=== PATIENT | female | born 1980 | race Hispanic/Latino ===

== ENCOUNTER 2018-08-15 19:45 | Emergency (ER) | payer OTHER, SELFPAY ==
[2018-08-15] MEDS: NORCO, ANEXSIA 5/325MG TABLET (HYDROcodone/ACETAMINOPHEN) PO (20:20)
== END 2018-08-15 20:48 | disposition home or self-care (01) ==
LOC: M ED 19:45
DX: S96.212A Strain of intrinsic muscle and tendon at ankle and foot level, left foot, initial encounter (principal); W10.8XXA Fall (on) (from) other stairs and steps, initial encounter; Y92.098 Other place in other non-institutional residence as the place of occurrence of the external cause; K21.9 Gastro-esophageal reflux disease without esophagitis; K58.9 Irritable bowel syndrome, unspecified; F31.9 Bipolar disorder, unspecified; Z87.42 Personal history of other diseases of the female genital tract; Z79.899 Other long term (current) drug therapy
CPT/HCPCS: 73610

== ENCOUNTER 2018-09-16 05:59 | Emergency (ER) | payer OTHER ==
[2018-09-16] MEDS: ACETAMINOPH W/CODEINE #3 TAB UD PO (06:30)
== END 2018-09-16 07:48 | disposition home or self-care (01) ==
LOC: M ED 05:59
DX: S70.02XA Contusion of left hip, initial encounter (principal); S20.212A Contusion of left front wall of thorax, initial encounter; W10.8XXA Fall (on) (from) other stairs and steps, initial encounter; Y92.018 Other place in single-family (private) house as the place of occurrence of the external cause; M79.642 Pain in left hand; K21.9 Gastro-esophageal reflux disease without esophagitis; K58.9 Irritable bowel syndrome, unspecified; F31.9 Bipolar disorder, unspecified; F60.3 Borderline personality disorder; Z79.899 Other long term (current) drug therapy
CPT/HCPCS: 71101

== ENCOUNTER → 2018-09-27 | Outpatient (CLI) | payer OTHER ==
[2018-09-27 16:52] LABS: BASO # 0.1 10^3/uL (0.0-0.2); EOS # 0.2 10^3/uL (0.0-0.50); EOS % 3.7 % (0.0-3.0); HEMATOCRIT 42.4 % (36.0-47.0); HEMOGLOBIN 13.1 g/dl (12.0-15.5); IMMATURE GRANULOCYTE # 0.1 10^3/uL (0-0); IMMATURE GRANULOCYTE % 1.1 % (0-3.0); LYMPH # 2.6 10^3/uL (1.5-4.5); LYMPH % 42.2 % (24.0-44.0); MEAN CORPUSCULAR HEMOGLOBIN 30.1 pg (27.0-33.0); MEAN CORPUSCULAR HGB CONC 30.9 g/dl (32.0-36.5); MEAN CORPUSCULAR VOLUME 97.5 fl (80.0-96.0); MONO # 0.2 10^3/uL (0.0-0.8); MONO % 3.7 % (0.0-5.0); NEUTROPHILS % 48.3 % (36.0-66.0); PLATELET COUNT, AUTOMATED 272 10^3/uL (150-450); RED BLOOD COUNT 4.35 10^6/uL (4.00-5.40); WHITE BLOOD COUNT 6.2 10^3/uL (4.0-10.0)
[2018-09-27 17:52] LABS: ALBUMIN 4.1 GM/DL (3.2-5.2); ALBUMIN/GLOBULIN RATIO 1.52 (1.00-1.93); ALKALINE PHOSPHATASE 84 U/L (45-117); ALT/SGPT 31 U/L (12-78); ANION GAP 9 MEQ/L (8-16); AST/SGOT 19 U/L (7-37); BILIRUBIN,TOTAL 0.3 MG/DL (0.2-1.0); BLOOD UREA NITROGEN 10 MG/DL (7-18); CALCIUM LEVEL 9.2 MG/DL (8.5-10.1); CARBON DIOXIDE LEVEL 25 MEQ/L (21-32); CHLORIDE LEVEL 107 MEQ/L (98-107); CHOLESTEROL LEVEL 255 MG/DL (<200); CREATININE FOR GFR 0.85 MG/DL (0.55-1.30); GLOMERULAR FILTRATION RATE > 60.0 (>60); GLUCOSE, FASTING 111 MG/DL (70-100); HDL CHOLESTEROL 51 MG/DL (>40); LDL CHOLESTEROL 174 MG/DL (<100); LITHIUM LEVEL 0.97 MEQ/L (0.60-1.20); NON-HDL-C 204 MG/DL; SODIUM LEVEL 141 MEQ/L (136-145); TOTAL PROTEIN 6.8 GM/DL (6.4-8.2); TRIGLYCERIDES LEVEL 148 MG/DL (<150)
[2018-09-27 18:06] LABS: ESTIMATED AVERAGE GLUCOSE 100 MG/DL (60-110); HEMOGLOBIN A1c 5.1 %
== END ==
LOC: M WUC 11:17
DX: F41.9 Anxiety disorder, unspecified (principal)
CPT/HCPCS: 80178

== ENCOUNTER 2018-10-07 07:51 | Emergency (ER) | payer OTHER ==
[2018-10-07 08:43] LABS: BASO # 0.1 10^3/uL (0.0-0.2); BASO % 0.7 % (0.0-1.0); EOS # 0.2 10^3/uL (0.0-0.50); EOS % 3.3 % (0.0-3.0); HEMATOCRIT 37.8 % (36.0-47.0); HEMOGLOBIN 12.1 g/dl (12.0-15.5); IMMATURE GRANULOCYTE % 1.3 % (0-3.0); LYMPH # 2.5 10^3/uL (1.5-4.5); LYMPH % 36.4 % (24.0-44.0); MEAN CORPUSCULAR HEMOGLOBIN 30.7 pg (27.0-33.0); MEAN CORPUSCULAR VOLUME 95.9 fl (80.0-96.0); MONO # 0.3 10^3/uL (0.0-0.8); NEUTROPHILS # 3.6 10^3/uL (1.8-7.7); NEUTROPHILS % 53.3 % (36.0-66.0); PLATELET COUNT, AUTOMATED 206 10^3/uL (150-450); RED BLOOD COUNT 3.94 10^6/uL (4.00-5.40); RED CELL DISTRIBUTION WIDTH 13.2 % (11.5-14.5); WHITE BLOOD COUNT 6.7 10^3/uL (4.0-10.0)
[2018-10-07] MEDS: ASPIRIN 81 MG CHEW TABLET PO (08:44)
[2018-10-07] MEDS: SUCRALFATE 1 GM TAB PO (08:44)
[2018-10-07] MEDS: ONDANSETRON 4MG/2ML VIAL (J2405) IV (08:44)
[2018-10-07] MEDS: PANTOPRAZOLE 40MG INJ (PROTONIX) (C9113) IV (08:44)
[2018-10-07] MEDS: NITROGLYCERIN 0.4 MG SUBL TABLET SL (08:58)
[2018-10-07 09:00] LABS: ALBUMIN 3.5 GM/DL (3.2-5.2); ALBUMIN/GLOBULIN RATIO 1.17 (1.00-1.93); ALKALINE PHOSPHATASE 71 U/L (45-117); ALT/SGPT 26 U/L (12-78); ANION GAP 7 MEQ/L (8-16); AST/SGOT 18 U/L (7-37); BILIRUBIN,DIRECT < 0.1 MG/DL (0.0-0.2); BILIRUBIN,TOTAL 0.2 MG/DL (0.2-1.0); BLOOD UREA NITROGEN 11 MG/DL (7-18); CALCIUM LEVEL 9.2 MG/DL (8.5-10.1); CARBON DIOXIDE LEVEL 25 MEQ/L (21-32); CHLORIDE LEVEL 107 MEQ/L (98-107); CK-MB VALUE MASS < 1.0 NG/ML (<3.6); CPK CREATINE PHOSPHOKINASE 55 U/L (26-192); GLOMERULAR FILTRATION RATE > 60.0 (>60); GLUCOSE, FASTING 112 MG/DL (70-100); LIPASE 97 U/L (73-393); MB/CK RELATIVE INDEX 1.82 (< OR =4); POTASSIUM SERUM 3.7 MEQ/L (3.5-5.1); SODIUM LEVEL 139 MEQ/L (136-145); TOTAL PROTEIN 6.5 GM/DL (6.4-8.2); TROPONIN I < 0.02 NG/ML (< 0.10)
[2018-10-07] MEDS: KETOROLAC 30 MG/ML VIAL (J1885) IV (09:14)
[2018-10-07] MEDS: GI COCKTAIL 50ML BTL(HYOSCYAMINE/MAALOX/LIDOCAINE VISCOUS)(1:3:1) PO (09:14)
[2018-10-07] MEDS: METOCLOPRAMIDE INJ 10MG/2ML VIAL (J2765) IV (10:02)
[2018-10-07 11:15] LABS: CK-MB VALUE MASS < 1.0 NG/ML (<3.6); CPK CREATINE PHOSPHOKINASE 52 U/L (26-192); MB/CK RELATIVE INDEX 1.92 (< OR =4); TROPONIN I < 0.02 NG/ML (< 0.10)
== END 2018-10-07 12:32 | disposition home or self-care (01) ==
LOC: M ED 07:51
DX: K52.9 Noninfective gastroenteritis and colitis, unspecified (principal); R07.89 Other chest pain; K21.9 Gastro-esophageal reflux disease without esophagitis; F31.9 Bipolar disorder, unspecified
CPT/HCPCS: C9113

== ENCOUNTER 2018-11-03 18:24 | Emergency (ER) | payer OTHER ==
[~2018-11-03] VITALS: Ht 165.1 cm; Wt 72.7 kg
[~2018-11-03 18:24] MED LIST: ACET30TAB PO; IBUP-1022 PO; IBUP-1114 PO; KLON0.5T PO; LITH300T2 PO; NORCOTAB PO; PROT1TAB2 PO; PROZ10CA7 PO; SERO1TAB PO; SUCR1SS PO
[2018-11-03 18:25] VITALS: BP 113/67
[2018-11-03] MEDS ORDERED: NORCOTAB PO (19:45)
== END 2018-11-03 19:59 | disposition home or self-care (01) ==
LOC: M ED 18:24
DX: L72.3 Sebaceous cyst (principal)

== ENCOUNTER 2018-11-07 10:26 | Emergency (ER) | payer OTHER ==
[~2018-11-07] VITALS: Ht 165.1 cm; Wt 72.7 kg
[2018-11-07] MEDS ORDERED: NORCOTAB PO (11:28)
[2018-11-07] MEDS ORDERED: IBUP80TA PO (11:29)
[2018-11-07 11:34] VITALS: BP 100/56
== END 2018-11-07 11:37 | disposition home or self-care (01) ==
LOC: M ED 10:26
DX: L98.9 Disorder of the skin and subcutaneous tissue, unspecified (principal); K58.9 Irritable bowel syndrome, unspecified; F31.9 Bipolar disorder, unspecified

== ENCOUNTER 2018-12-07 15:14 | Emergency (ER) | payer OTHER ==
[~2018-12-07] VITALS: Ht 165.1 cm; Wt 72.7 kg
[~2018-12-07 15:14] MED LIST changes: +IBUP80TA PO
[2018-12-07] MEDS ORDERED: DICY20TA PO (16:17)
--- NOTE | 2018-12-07 17:36 | REP ---
Left wrist four views : There is no fracture or dislocation. Mineralization and joint spaces are normal. There are no calcifications or foreign bodies. Impression: Negative left wrist . Electronically Signed by Landon Myers MD 12/07/2018 05:27 P
[2018-12-07] MEDS ORDERED: BACT800T5 PO (17:43)
[2018-12-07] MEDS ORDERED: PYRI1TAB5 PO (17:43)
[2018-12-07] MEDS ORDERED: PROM12.528 PO (17:43)
[2018-12-07 17:50] VITALS: BP 132/65
== END 2018-12-07 18:00 | disposition home or self-care (01) ==
LOC: M ED 15:14
DX: N30.01 Acute cystitis with hematuria (principal); S60.212A Contusion of left wrist, initial encounter; X58.XXXA Exposure to other specified factors, initial encounter; Y92.89 Other specified places as the place of occurrence of the external cause; F99 Mental disorder, not otherwise specified; Z87.440 Personal history of urinary (tract) infections; Z79.899 Other long term (current) drug therapy

== ENCOUNTER 2018-12-13 16:01 | Emergency (ER) | payer OTHER ==
[~2018-12-13] VITALS: Ht 165.1 cm; Wt 68.2 kg
[~2018-12-13 16:01] MED LIST changes: +BACT800T5 PO; +DICY20TA PO; +PROM12.528 PO; +PYRI1TAB5 PO
[2018-12-13 16:02] VITALS: BP 124/72
[2018-12-13] MEDS ORDERED: PRED20TA PO (16:51)
[2018-12-13] MEDS ORDERED: ROBA500T PO (16:51)
[2018-12-13] MEDS ORDERED: METHOCARBAMOL 500 MG TAB PO ONE (17:00)
[2018-12-13] MEDS ORDERED: predniSONE 20 MG TAB PO ONE (17:00)
== END 2018-12-13 16:58 | disposition home or self-care (01) ==
LOC: M ED 16:01
DX: M54.12 Radiculopathy, cervical region (principal); K58.9 Irritable bowel syndrome, unspecified; F31.89 Other bipolar disorder; Z79.899 Other long term (current) drug therapy